=== PATIENT | male | born 1955 ===

== ENCOUNTER 2019-01-02 03:01 | Emergency (ER) | payer SELFPAY ==
[2019-01-02 03:21] VITALS: BP 177/87; PULSE 92; RESP 16; TEMP 98.9; O2SAT 99
--- NOTE | 2019-01-02 03:28 | C.PDOC ---
History Of Present Illness Patient presents with acute urinary retention . Last voided about 4-6 hours ago. Bladder scan shows about 650 cc in bladder. Nof/c/n/v. First episode Time Seen by Provider: 01/02/19 03:28 Chief Complaint (Nursing): Male Genitourinary History Per: Patient History/Exam Limitations: no limitations Onset/Duration Of Symptoms: Hrs Current Symptoms Are (Timing): Worse Severity: Severe Pain Scale Rating Of: 8 Quality Of Discomfort: Pressure Associated Symptoms: denies: Fever, Chills, Nausea, Vomiting Alleviating Factors: None Recent travel outside of the [place]: No Additional History Per: Family Past Medical History Reviewed: Historical Data, Nursing Documentation, Vital Signs Vital Signs: Last Vital Signs Temp 98.9 F 01/02/19 03:16 Pulse 92 H 01/02/19 03:16 Resp 16 01/02/19 03:16 BP 177/87 H 01/02/19 03:16 Pulse Ox 99 01/02/19 03:16 Family History: States: No Known Family Hx - Social History Hx Alcohol Use: No Hx Substance Use: No Review Of Systems Constitutional: Negative for: Fever, Chills Genitourinary: Positive for: Other (retention) Musculoskeletal: Negative for: Back Pain Skin: Negative for: Rash Physical Exam - Physical Exam Appears: In Acute Distress Gastrointestinal/Abdominal: Soft, Tenderness, Other (globus vesicalis) Male Genital: No Testicular Tenderness, No Scrotal Swelling, No Circumcised Extremity: Normal ROM Neurological/Psych: Oriented x3 ED Course And Treatment O2 Sat by Pulse Oximetry: 99 Pulse Ox Interpretation: Normal Progress Note: I've placed an 18 Martin[place] palacios without any difficulty and drained about 700cc of clear urine. Pt with instant relief. Reevaluation Time: 03:41 Reassessment Condition: Improved Disposition Counseled Patient/Family Regarding: Studies Performed, Diagnosis, Need For Followup - Disposition Referrals: Lavon Serna MD [Staff Provider] - Disposition: HOME/ ROUTINE Disposition Time: 03:28 Condition: FAIR Instructions: Urinary Retention (DC), How to Care for Your Palacios Catheter, Male Forms: [facility] (Spanish) Print Language: [email or web address] - Clinical Impression Clinical Impression: Acute urinary retention
== END 2019-01-02 03:55 | disposition home or self-care (01) ==
LOC: C.ER 03:01
DX: R33.9 Retention of urine, unspecified (principal)